=== PATIENT | male | born 1935 | race Caucasian/White ===

== ENCOUNTER 2017-06-27 19:49 | Emergency (ER) | payer OTHER ==
--- NOTE | 2017-06-27 20:04 | PDOC ---
History of Present Illness - General History Source: Patient, Family Exam Limitations: No Limitations - History of Present Illness Initial Comments: 06/27/17 20:11 The patient is a 82 year old male presenting with his , with a significant past medical history of CLL (in remission), who presents to the emergency department after a syncopal episode earlier today. He reports that he was feeling fine and suddenly became diaphoretic, and lightheaded. He sat down and fainted according to his family. He reports that a chair fell on his head when he fainted and he was unable to be awaken by family until EMS arrived. He notes that he played tennis earlier today without any complications. He reports that he has been taking probiotics as advised by his GI but had become gassier than usual and stopped taking the probiotics. He denies any recent illness or sick contacts. He does note that he had one emesis episode while on route to the hospital in the ambulance, he denies any current nausea. He reports that he was eating "light" all day and had a few glasses of wine prior to the syncopal episode. The patient denies chest pain, shortness of breath, headache, fever, chills, diarrhea and constipation. Denies dysuria, frequency, urgency and hematuria. Allergies: None Past surgical history: None reported Social history: No alcohol, tobacco or drug use reported <Marcial Knapp - Last Filed: 06/27/17 20:44> - General History Source: Patient, Family Exam Limitations: No Limitations <Padma Garcia - Last Filed: 06/29/17 17:38> - General Chief Complaint: Syncope/Near Syncope Stated Complaint: SYNCOPE Time Seen by Provider: 06/27/17 20:04 Past History <Marcial Knapp - Last Filed: 06/27/17 20:44> <Padma Garcia - Last Filed: 06/29/17 17:38> - Past Medical History Allergies/Adverse Reactions: Allergies Allergy/AdvReac Type Severity Reaction Status Date / Time No Known Allergies Allergy Verified 06/27/17 20:03 Home Medications: Ambulatory Orders NK [No Known Home Medication] 06/27/17 Review of Systems - Review of Systems Able to Perform ROS?: Yes Comments:: 06/27/17 20:12 GENERAL/CONSTITUTIONAL: (+) Diaphoretic. No fever or chills. No weakness. HEAD, EYES, EARS, NOSE AND THROAT: No change in vision. No ear pain or discharge. No sore throat. CARDIOVASCULAR: (+) Lightheadedness. No chest pain or shortness of breath RESPIRATORY: No cough, wheezing, or hemoptysis. GASTROINTESTINAL: No nausea, vomiting, diarrhea or constipation. GENITOURINARY: No dysuria, frequency, or change in urination. MUSCULOSKELETAL: No joint or muscle swelling or pain. No neck or back pain. SKIN: No rash NEUROLOGIC: (+) Loss of consciousness. No headache, or change in strength/ sensation. ENDOCRINE: No increased thirst. No abnormal weight change HEMATOLOGIC/LYMPHATIC: No anemia, easy bleeding, or history of blood clots. ALLERGIC/IMMUNOLOGIC: No hives or skin allergy. <Marcial Knapp - Last Filed: 06/27/17 20:44> *Physical Exam - Vital Signs Last Vital Signs Temp Pulse Resp BP Pulse Ox 97.9 F 70 18 100/70 94 L 06/27/17 20:03 06/27/17 20:03 06/27/17 20:03 06/27/17 20:03 06/27/17 20:03 - Physical Exam Comments: 06/27/17 20:12 GENERAL: Awake, alert, and fully oriented, in no acute distress HEAD: No signs of trauma, normocephalic, atraumatic EYES: PERRLA, EOMI, sclera anicteric, conjunctiva clear. Pupils are round and reactive. ENT: Auricles normal inspection, hearing grossly normal, nares patent, oropharynx clear without exudates. Moist mucosa NECK: Normal ROM, supple, no lymphadenopathy, JVD, or masses LUNGS: No distress, speaks full sentences, clear to auscultation bilaterally HEART: (+) Lightheadedness still present. Regular rate and rhythm, normal S1 and S2, no murmurs, rubs or gallops, peripheral pulses normal and equal bilaterally. ABDOMEN: Soft, nontender, normoactive bowel sounds. No guarding, no rebound. No masses EXTREMITIES : Normal inspection, Normal range of motion, no edema. No clubbing or cyanosis. NEUROLOGICAL: Cranial nerves II through XII grossly intact. Normal speech, normal gait, no focal sensorimotor deficits. Able to move all extremities. Face symmetric. Strength and sensation intact. SKIN: Warm, Dry, normal turgor, no rashes or lesions noted <Marcial Knapp - Last Filed: 06/27/17 20:44> ED Treatment Course - LABORATORY CBC & Chemistry Diagram: 06/27/17 20:15 06/27/17 20:45 <Padma Garcia - Last Filed: 06/29/17 17:38> Medical Decision Making - Medical Decision Making 06/27/17 20:31 Mr. Esposito is an 82 yo M with a history of CLL (in remission), remote h/o Non Hodgkins lymphoma who presents to the ER via EMS s/p syncopal event today The patients states that he was in his usual state of health Was at an event this evening, noted that he did not feel well He describes feeling sweaty and lightheaded He told his and friends, they recommended that he go home He was assisted to standing, and turned becker (according to the ) and then fell to the ground He fell under the table, a chair struck him on the head Pt had a loss of consciousness for between 3 and 6 minutes Pt was not noted to have rhythmic shaking of the arms or legs No prior episodes like this no bowel or bladder incontinence No preceding chest pain, palpitations, headache, focal weakness or numbness Pt denies headaches before this happened although states that after his syncopal event, he had head pressure No recent fevers or chills No cough Pt had small meal today Was actually able to play tennis today Pt states he runs almost daily (approximately 3 miles), no chest pain when doing so Pt denies prior NM, CVA, TIA DD: Vasovagal episode/dehydration, arrhythmia, ACS, less likely SDH, Will do: Labs EKG CT head Orthostatics CXR Pt does not want to stay for observation, will need to AMA EKG: SR rate of 66 bpm, LAD, LVH, no ST elevations or depressions, t waves upright 06/27/17 21:37 Laboratory Tests 06/27/17 20:15 WBC 10.2 H Hgb 11.4 L Hct 33.[address]: no acute pathology 06/27/17 21:54 Pt states he feels better No orthostasis CXR: ? increase upper lobe markings 06/27/17 21:56 Laboratory Tests 06/27/17 20:45 Sodium 136 Potassium 4.2 Chloride 101 Carbon Dioxide 25 Anion Gap 10 BUN 25 H Creatinine 1.5 H Random Glucose 149 H Creatine Kinase 106 Troponin I < 0.02 Pt refusing to stay in the hospital overnight Will sign out AMA Pt given copies of all results Will call his pmd this evening or in the morning Note: The patient insists on leaving the emergency dept and is signing out against medical advice. The patient understands the risks and complications that may result from the refusal of medical care and admission which includes and permanent disability. The patient has the mental capacity of understanding the risks of refusing care and is capable of making an informed decision. The patient was instructed to return to the emergency department should he change his mind regarding medical care or should his condition worsen. The patient signed the Against Medical Advice form. Clinical impression: syncope, initial presentation 06/29/17 17:37 <Padma Garcia - Last Filed: 06/29/17 17:38> *DC/Admit/Observation/Transfer - Attestations Scribe Attestion: 06/27/17 20:12 Documentation prepared by Marcial Knapp, acting as senior medical director for Padma Garcia MD <Marcial Knapp - Last Filed: 06/27/17 20:44> - Discharge Dispostion Admit: No <Padma Garcia - Last Filed: 06/29/17 17:38> Diagnosis at time of Disposition: Syncope and collapse - Discharge Dispostion Disposition: AGAINST MEDICAL ADVICE Condition at time of disposition: Stable - Patient Instructions Printed Discharge Instructions: DI for Syncope in Adults (Fainting) Additional Instructions: Mr Esposito Thanks for coming in to the ER today Please be sure to follow up with your primary care physician as soon as possible Please return to the ER for any other concerns or complaints
[2017-06-27 20:05] VITALS: TEMP 97.9; BMI 22.1
[2017-06-27] MEDS ORDERED: ONDANSETRON 4 MG/2 ML VIAL ONE (20:12)
[2017-06-27] MEDS ORDERED: SODIUM CHLORIDE 1,000 ML IV STA (20:15)
[2017-06-27 20:37] VITALS: BP 123/62; PULSE 69
[2017-06-27 20:51] LABS: BASO % 0.6 % (0-2.0); EOS % 0.3 % (0-4.5); HEMATOCRIT 33.4 % (35.4-49); HEMOGLOBIN 11.4 GM/dL (11.7-16.9); LYMPH % 10.6 % (8-40); MCH 32.6 pg (25.7-33.7); MCHC 34.2 g/dl (32.0-35.9); MEAN CELL VOLUME 95.4 fl (80-96); MEAN PLT VOLUME 8.7 fl (7.5-11.1); MONO % 6.4 % (3.8-10.2); NEUT % 82.1 % (42.8-82.8); RDW 12.6 % (11.9-15.9); WHITE BLOOD COUNT 10.2 K/mm3 (4.0-10.0)
[2017-06-27 21:32] LABS: ALBUMIN 3.5 g/dl (3.4-5.0); ANION GAP 10 (8-16); BLOOD UREA NITROGEN 25 mg/dL (7-18); CALCIUM 8.5 mg/dL (8.5-10.1); CHLORIDE 101 mmol/L (98-107); CO2 25 mmol/L (21-32); CREATININE 1.5 mg/dL (0.7-1.3); GLUCOSE,RANDOM 149 mg/dL (74-106); SGPT/ALT 19 U/L (12-78); SODIUM 136 mmol/L (136-145)
[2017-06-27 21:40] LABS: ALK PHOS 76 U/L (45-117); BILIRUBIN,TOTAL 0.7 mg/dL (0.2-1.0)
[2017-06-27 21:41] LABS: POTASSIUM 4.2 mmol/L (3.5-5.1); SGOT/AST 22 U/L (15-37)
[2017-06-27 21:48] LABS: PLATELET COUNT 102 K/MM3 (134-434); PLATELET ESTIMATE DECREASED
--- NOTE | 2017-06-28 11:40 | EKG ---
Test Reason : Blood Pressure : / mmHG Vent. Rate : 066 BPM Atrial Rate : 066 BPM P-R Int : 238 ms QRS Dur : 096 ms QT Int : 418 ms P-R-T Axes : 042 -36 029 degrees QTc Int : 438 ms SINUS RHYTHM WITH 1ST DEGREE A-V BLOCK LEFT AXIS DEVIATION VOLTAGE CRITERIA FOR LEFT VENTRICULAR HYPERTROPHY CANNOT RULE OUT SEPTAL INFARCT , AGE UNDETERMINED ABNORMAL ECG NO PREVIOUS ECGS AVAILABLE Confirmed by TRISH DRAPER, JOSE CARLOS ([id number]) on 06/28/2017 11:40:38 AM Referred By: Confirmed By:JOSE CARLOS CHAMBERS MD
== END 2017-06-27 22:20 | disposition left against medical advice (07) ==
LOC: JER 19:49
PROC: 3E0337Z Introduction of Electrolytic and Water Balance Substance into Peripheral Vein, Percutaneous Approach (ICD-10-PCS; principal; 2017-06-27)
DX: R55 Syncope and collapse (principal); W18.09XA Striking against other object with subsequent fall, initial encounter; Y93.89 Activity, other specified; Y92.018 Other place in single-family (private) house as the place of occurrence of the external cause; Y99.8 Other external cause status; C91.11 Chronic lymphocytic leukemia of B-cell type in remission; Z85.71 Personal history of Hodgkin lymphoma
CPT/HCPCS: 36415; 70450-TC; 71045-TC-FY; 80053; 80307; 82550; 84484; 85025; 93005; 93010; 99282-25